=== PATIENT | male | born 1995 | race Caucasian/White ===

== ENCOUNTER 2018-07-13 10:51 | Day surgery (SDC) | payer BC ==
[~2018-07-13] VITALS: Ht 177.8 cm; Wt 72.7 kg
== END 2018-07-13 13:05 | disposition home or self-care (01) ==
LOC: ORSCSDS 10:51
PROVIDERS: Surgery
PROC: 0JB40ZZ Excision of Right Neck Subcutaneous Tissue and Fascia, Open Approach (ICD-10-PCS; principal; 2018-07-13 12:00)
DX: L72.9 Follicular cyst of the skin and subcutaneous tissue, unspecified (principal); F17.210 Nicotine dependence, cigarettes, uncomplicated
CPT/HCPCS: 88304; J2001; J2250; J3010; J7120

== ENCOUNTER → 2019-11-07 | Outpatient (CLI) | payer SELFPAY | END | disposition home or self-care (01) | LOC: LAB SHORT 07:37 → PLD 07:37 | DX: D18.01 Hemangioma of skin and subcutaneous tissue (principal) | CPT/HCPCS: 88305 ==